=== PATIENT | female | born 1940 | race Caucasian/White ===

== ENCOUNTER 2023-02-28 12:17 | Emergency (ER) | payer MEDICARE, SELFPAY ==
--- NOTE | ~2023-02-28 | XR_ITS ---
EXAMINATION: XR FOREARM, RIGHT CLINICAL INFORMATION: Pain. Fall. COMPARISON: None available. TECHNIQUE: AP and lateral views of the right forearm were obtained. FINDINGS: No acute abnormality. No fracture of the radius or ulna. No soft tissue abnormality. Elbow joint is normal. There is degenerative joint narrowing of the first metacarpal carpal joint as well as the joint space between the navicular and multangular bones. Chondrocalcinosis of the radiocarpal joint. No bone erosion. XR/XR forearm RT 2V IMPRESSION: 1. No acute abnormality of the radius or ulna. 2. Degenerative joint disease of the wrist.
--- NOTE | ~2023-02-28 | XR_ITS ---
EXAMINATION: CHEST 2 VIEWS CLINICAL INFORMATION: Cough and fever. COMPARISON: Chest x-ray 02/22/2017. TECHNIQUE: 2 views of the chest. FINDINGS: Devices: None. Mediastinum: Cardiomediastinal silhouette within normal limits. Pulmonary vascularity is normal. Lungs: Normal expansion. No focal consolidation. Pleura: No pleural effusion or pneumothorax. Bones: Degenerative changes in the shoulders and spine. Other: Unremarkable. XR/XR chest 2V IMPRESSION: No focal pneumonia.
--- NOTE | ~2023-02-28 | CT_ITS ---
EXAMINATION: CT brain without contrast. Right tibia and fibula. CLINICAL INDICATION: Fall. Acute pain. TECHNIQUE: 5 mm thin axial and reformatted 2 mm thin sagittal and coronal images of brain were obtained. DLP [id number]. This CT examination was performed using dose optimization technique as appropriate, variously including the following: Automated exposure control Adjustment of MA and/or KV according to patient size(this includes techniques or standardized protocols for targeted exams where dose is matched to indication/reason for exam; extremities or head. Use of iterative reconstruction techniques. Right tibia and fibula 2 views. FINDINGS: Brain: There is no acute intra-axial, extra-axial bleed, masses or midline shift. There is no acute infarction evolution. There is no edema. There is symmetrical but enlarged lateral ventricles with mild prominence of cortical sulci. There is diffuse periventricular hypodensity in both cerebral hemispheres suggestive of chronic small vessel ischemic changes. Bone windows reveal no calvarial abnormality. Bilateral paranasal sinuses and mastoid air cells are well-aerated. There is no scalp soft tissue abnormality seen. Bilateral orbits and optic globes are symmetrical and normal. RIGHT TIBIA AND FIBULA: There is no visible fracture or bony abnormality. The ankle mortise appears normal. There is mild loss of medial compartment joint space with periarticular spurring. The soft tissues are normal. CT/CT head/brain wo IV con IMPRESSION: 1. No acute intracranial process seen. 2. Age-related cerebral volume loss with chronic small vessel ischemic changes in both cerebral hemispheres. 3. There is no visible fracture or dislocation in right tibia and fibula.
--- NOTE | 2023-02-28 12:18 | ECG_ITS ---
Test Reason : high heart rate Blood Pressure : / mmHG Vent. Rate : 102 BPM Atrial Rate : 102 BPM P-R Int : 146 ms QRS Dur : 088 ms QT Int : 350 ms P-R-T Axes : 079 -64 078 degrees QTc Int : 456 ms Sinus tachycardia with occasional Premature ventricular complexes Possible Left atrial enlargement Left anterior fascicular block Minimal voltage criteria for LVH, may be normal variant ( [place] product ) Nonspecific ST and T wave abnormality Abnormal ECG When compared with ECG of 09-SEP-2019 17:18, Premature ventricular complexes are now Present Referred By: Christine Shane Electronically Signed By:OLVIN SANCHEZ
[2023-02-28 12:35] VITALS: BP 125/64; PULSE 114; RESP 18; TEMP 36.8; O2SAT 96; BMI 20.1
--- NOTE | 2023-02-28 12:36 | ED_ITS ---
HPI - General Adult General Chief complaint: Altered Mental Status Stated complaint: High heart rate/Fever Time Seen by Provider: 02/28/23 20:12 Source: EMS and RN notes reviewed Mode of arrival: wheelchair Limitations: altered mental status History of Present Illness HPI narrative: 82 yo female with history of dementia, HTN, HLD, osteoporosis presents to the ER for evaluation of increased confusion at home. Visiting nurse reported low grade fever 99.9 and tachycardia 110 today. She had a fall yesterday, lost footing when saying goodbye to family and sustained small wound and some bruising to RLE. No head strike but fall was unwitnessed. HR 108 in triage, afebrile patient denies any significant weakness feels normal Related Data Allergies Allergy/AdvReac Type Severity Reaction Status Date / Time Sulfa (Sulfonamide Allergy Unknown BURNING Verified 02/28/23 12:42 Antibiotics) [SULFA (SULFONAMIDE ANTIBIOTICS)] Review of Systems 2 Review of Systems: Yes all other systems are reviewed and are negative [facility] Social History Social History Alcohol intake: current Alcohol intake frequency: holidays/special occasions only Alcohol type: wine Smoked in Last 30 Days: No Use of substances other than those prescribed or required for medical reasons: No Advance Directives: No Advance Directives Information Provided: Yes Physical Exam ED Vital Signs: Vital Signs - 24 hr 02/28/23 12:35 02/28/23 19:29 02/28/23 22:16 Temperature 98.2 F 97.9 F 97.3 F Pulse Rate 114 H 95 95 Respiratory Rate 18 18 18 Blood Pressure 125/64 169/85 H 143/82 H Pulse Oximetry 96 100 100 Oxygen Delivery Method Room Air Room Air Room Air BMI result Body Mass Index 20.1 Appearance: Alert. Oriented X3. No acute distress. Eyes: PERRLA, No Nystagmus ENT: Pharynx normal. Oral Mucosa moist Neck: Normal inspection. Neck supple. CVS: Normal heart rate and rhythm. Pulses normal. Respiratory: No respiratory distress. Equal air entry bilateral, no wheezing/rales/rhonchi Abdomen: Soft and nontender. Bowel sounds are present, no mass palpable, no CVA tenderness Skin: Skin warm and dry. Normal skin color. Normal skin turgor. Extremities: No lower extremity edema. No calf tenderness superficial abrasion right lee Neuro: Oriented X 3. No motor deficit. No sensory deficit.No cerebellar signs , cranial nerves II-XII intact Course Course Course Narrative: RME - 82 yo female with history of dementia, HTN, HLD, osteoporosis presents to the ER for evaluation of increased confusion at home. Visiting nurse reported low grade fever and tachycardia 110 today. She had a fall yesterday, lost footing when saying goodbye to family and sustained small wound and some bruising to RLE. No head strike but fall was unwitnessed. HR 108 in triage, afebrile. Plan: lab workup, EKG, viral swabs, CXR Medical Decision Making Medical Decision Making MDM Narrative: Patient with increased confusion likely early dementia workup negative no source of infection found, urine showed no WBC, imoderate amount of red cells , advisedrink plenty of fluids and follow with PCP Differential Diagnosis Differential Diagnoses: The differential diagnosis associated with the presentation includes Dementia/UTI/infection/encephalopathy/metabolic encephalopathy Admission/Observation Consideration of admission/observation: Escalation of care including admission/observation considered Consult Healthcare Provider Management of the patient was discussed with: Hospitalist Lab Data [facility] Lab Attestation statement: I reviewed the patient's lab results. 02/28/23 16:39 02/28/23 12:40 Labs: Lab Results 02/28/23 02/28/23 02/28/23 Range/Units 12:40 16:39 19:33 WBC 6.4 (4.8-10.8) X10*3/uL RBC 4.23 (4.20-5.50) X10*6/uL Hgb 11.8 L (12.0-16.0) g/dl Hct 36.8 L (37.0-47.0) % MCV 87.0 (80.0-98.0) fL MCH 27.9 (27.0-33.0) pg MCHC 32.1 (31.0-35.0) g/dl RDW 14.7 (11.0-16.0) % Plt Count 284 (160-400) X10*3/uL MPV 9.4 (9.4-12.3) fL Immature Gran % (Auto) 0.5 H (0.0-0.4) % Neut % (Auto) 72.1 (45-73) % Lymph % (Auto) 20.0 (20-40) % [place] % (Auto) 6.6 (2-11) % Eos % (Auto) 0.5 (0-4) % Baso % (Auto) 0.3 (0-2) % Lymph # (Auto) 1.3 (1.2-4.9) X10*3/uL [place] # (Auto) 0.4 (0.1-1.2) X10*3/uL Eos # (Auto) 0.0 (0.0-0.4) X10*3/uL Baso # (Auto) 0.0 (0.0-0.2) X10*3/uL Abs Immat Gran (auto) 0.03 (0.00-0.03) X10*3/uL Absolute Neuts (auto) 4.6 (2.0-8.3) x10*3/uL Absolute Nucleated RBC 0.000 (0.0-0.012) X10*3/uL Nucleated RBC % (auto) 0.0 (0.0-0.2) /100WBC Sodium 136 (135-145) mmol/L Potassium 4.0 (3.3-5.1) mmol/L Chloride 108 (96-108) mmol/L Carbon Dioxide 18 L (22-29) mmol/L Anion Gap 14 (12-20) BUN 17 H (9-16) mg/dL Creatinine 0.81 (0.5-1.4) mg/dL Estim Creat Clear Calc 40.6 Estimated GFR > 60 Random Glucose 99 (60-115) mg/dL Calcium 9.5 (8.4-10.2) mg/dL Magnesium 2.2 (1.6-2.6) mg/dL Total Bilirubin 0.3 (0.0-1.0) mg/dL Direct Bilirubin 0.1 (0.0-0.5) mg/dL AST 18 (5-31) U/L ALT 8 (0-31) U/L Alkaline Phosphatase 90 (39-117) U/L Troponin I High Sens 5.7 (<3.5-17.0) ng/L Total Protein 6.9 (6.5-8.0) g/dL Albumin 3.8 (3.5-5.0) g/dL Urine Color Yellow Urine Appearance Clear Urine pH 5.5 (5.0-9.0) Ur Specific [place] 1.010 (1.005-1.025) Urine Protein Negative (Neg-Trace) mg/dL Urine Glucose (UA) Negative (Negative) mg/dL Urine Ketones Trace (Negative) mg/dL Urine Blood Negative (Negative) Urine Nitrite Negative (Negative) Ur Leukocyte Esterase Moderate (2+) H (Negative) Urine RBC 6-10 H (0-2) /HPF Urine WBC 0-5 (0-5) /HPF Ur Squamous Epith Cells 3-5 (0-2) /HPF Urine Bacteria 1+ (None Seen) Hyaline Casts 0-2 (0-2) /LPF Influenza Type A (PCR) NEGATIVE (Negative) Influenza Type B (PCR) NEGATIVE (Negative) RSV RNA Qual (PCR) NEGATIVE (Negative) SARS-CoV-2 RNA (RT-PCR) NEGATIVE (Negative) Independent Interpretation I performed an independent interpretation of an: EKG Interpretation: Sinus tachycardia heart rate 102 beats per min left anterior fascicular block LVH no acute ST changes no acute ischemia Discharge Plan Discharge Clinical Impression: Confusion, Fall Patient Disposition: Home, Self-Care Instructions: Dementia (ED), Fall Prevention for Older Adults (ED) Additional Instructions: Cause of increased confusion is not very clear possible early dementia No source of infection found Drink plenty of fluids and follow-up with your PCP Care and cautions as Adviced Interventions: ED Discharge Assessment Last Done: 02/28/23 22:19 Discharge Date/Time: 02/28/23 22:20
[2023-02-28 13:08] LABS: Alanine Aminotransferase 8 U/L (0-31); Albumin Level 3.8 g/dL (3.5-5.0); Alkaline Phosphatase 90 U/L (39-117); Anion Gap 14 (12-20); Aspartate Amino Transferase 18 U/L (5-31); Bilirubin Direct 0.1 mg/dL (0.0-0.5); Bilirubin Total 0.3 mg/dL (0.0-1.0); Blood Urea Nitrogen 17 mg/dL (9-16); Calcium 9.5 mg/dL (8.4-10.2); Carbon Dioxide 18 mmol/L (22-29); Chloride 108 mmol/L (96-108); Creatinine Clr Calc Pharmacy 40.6; Estimated Glomerular Filt Rate > 60; Glucose Random 99 mg/dL (60-115); Magnesium 2.2 mg/dL (1.6-2.6); Sodium 136 mmol/L (135-145); Total Protein 6.9 g/dL (6.5-8.0)
[2023-02-28 13:15] LABS: Troponin-I High Sensitivity 5.7 ng/L (<3.5-17.0)
[2023-02-28 16:44] LABS: MANUAL DIFF FLAG NO
[2023-02-28 16:48] LABS: Basophils Percent Auto 0.3 % (0-2); Eosinophils Percent Auto 0.5 % (0-4); Hematocrit 36.8 % (37.0-47.0); Hemoglobin 11.8 g/dl (12.0-16.0); Imm Gran Abs Auto 0.03 X10*3/uL (0.00-0.03); Imm Gran Pct Auto 0.5 % (0.0-0.4); Lymphocytes Absolute Auto 1.3 X10*3/uL (1.2-4.9); Mean Corpuscular HGB Conc 32.1 g/dl (31.0-35.0); Mean Corpuscular Hemoglobin 27.9 pg (27.0-33.0); Mean Platelet Volume 9.4 fL (9.4-12.3); Monocytes Absolute Auto 0.4 X10*3/uL (0.1-1.2); Monocytes Percent Auto 6.6 % (2-11); Neutrophils Absolute Auto 4.6 x10*3/uL (2.0-8.3); Neutrophils Percent Auto 72.1 % (45-73); Platelet Count 284 X10*3/uL (160-400); Red Blood Count 4.23 X10*6/uL (4.20-5.50); Red Cell Distribution Width 14.7 % (11.0-16.0); White Blood Count 6.4 X10*3/uL (4.8-10.8)
[2023-02-28 17:22] LABS: Influenza A PCR NEGATIVE (Negative); Influenza B PCR NEGATIVE (Negative); Resp Syncy Virus RNA Qual PCR NEGATIVE (Negative); SARS COV2 PCR INHOUSE NEGATIVE (Negative)
[2023-02-28 19:29] VITALS: BP 169/85; PULSE 95; RESP 18; TEMP 36.6; O2SAT 100
[2023-02-28 19:52] LABS: Appearance Urine Clear; Color Urine Yellow; Glucose Urine UA Negative (Negative); Leukocyte Esterase Urine Moderate (2+) (Negative); Nitrite Urine Negative (Negative); PH 5.5 (5.0-9.0); UMIC TRIGGER UACC YES; Urine Blood Negative (Negative); Urine Ketones Trace mg/dL (Negative); Urine Protein Negative (Neg-Trace)
[2023-02-28 19:59] LABS: Bacteria Urine 1+ (None Seen); Hyaline Casts Urine 0-2 /LPF (0-2); WBC Urine 0-5 /HPF (0-5)
[2023-02-28 22:16] VITALS: BP 143/82; PULSE 95; RESP 18; TEMP 36.3; O2SAT 100
== END 2023-02-28 22:20 | disposition home or self-care (01) ==
PROVIDERS: Physician Assistant; Emergency Provider Internal Medicine
DX: S09.90XA Unspecified injury of head, initial encounter (principal); F03.90 Unspecified dementia, unspecified severity, without behavioral disturbance, psychotic disturbance, mood disturbance, and anxiety; R50.9 Fever, unspecified; R51.9 Headache, unspecified; R00.0 Tachycardia, unspecified; M54.2 Cervicalgia; R07.89 Other chest pain; M79.604 Pain in right leg; M79.601 Pain in right arm; I10 Essential (primary) hypertension; W01.10XA Fall on same level from slipping, tripping and stumbling with subsequent striking against unspecified object, initial encounter; Y93.9 Activity, unspecified; Y92.9 Unspecified place or not applicable; Y99.9 Unspecified external cause status; Z20.822 Contact with and (suspected) exposure to COVID-19; Z20.828 Contact with and (suspected) exposure to other viral communicable diseases; Z79.899 Other long term (current) drug therapy
CPT/HCPCS: 0241U; 70450; 71046; 73090; 73590; 80048; 80076; 81001; 83735; 84484; 85025; 93005; 99283; 99285

== ENCOUNTER 2023-03-09 09:29 | Outpatient (REF) | payer MEDICARE, SELFPAY ==
[2023-03-09 11:00] LABS: Anion Gap 12 (12-20); Blood Urea Nitrogen 13 mg/dL (9-16); Calcium 10.1 mg/dL (8.4-10.2); Carbon Dioxide 26 mmol/L (22-29); Chloride 106 mmol/L (96-108); Estimated Glomerular Filt Rate > 60; Glucose Random 94 mg/dL (60-115); Potassium 4.1 mmol/L (3.3-5.1); Sodium 140 mmol/L (135-145)
[2023-03-09 11:04] LABS: T4 Thyroxine 8.2 ug/dL (4.5-12.0); Thyroid Stimulating Hormone 0.99 uIU/mL (0.32-4.0)
[2023-03-09 11:19] LABS: Folate 7.3 ng/mL (> or = 4.0); Vitamin B12 356 pg/mL (200-900)
== END 2023-03-09 09:30 | disposition home or self-care (01) ==
LOC: HO.LAB 09:29
PROVIDERS: Visit Provider Psychiatry & Neurology Neurology
DX: G31.84 Mild cognitive impairment of uncertain or unknown etiology (principal)
CPT/HCPCS: 36415; 80048; 82607; 82746; 84436; 84443

== ENCOUNTER 2023-04-11 17:56 | Outpatient (REF) | payer MEDICARE, SELFPAY ==
--- NOTE | ~2023-04-11 | MR_ITS ---
EXAMINATION: MR BRAIN WITHOUT CONTRAST CLINICAL INFORMATION: Mild cognitive impairment COMPARISON: CT head 02/28/2023 TECHNIQUE: MRI of the brain was obtained using routine sequences without contrast. FINDINGS: Motion degraded examination. No acute infarct. No acute intracranial hemorrhage or extra-axial fluid collection. Moderate global cerebral volume loss without lobar predilection. Patchy T2 FLAIR hyperintense foci in the subcortical and periventricular white matter and bilateral deep prieto nuclei, nonspecific but presumably advanced chronic microangiopathy. 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 No mass lesion, mass effect, or herniation pattern. Preserved intracranial arterial and dural venous sinus flow voids. 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 The intradural right vertebral artery flattens the right ventral medulla. Normal appearance of the midline structures. The orbits are grossly unremarkable. Air-fluid level versus dependent retention cyst in the right sphenoid sinus. Trace bilateral mastoid effusions. Asymmetric moderate degenerative changes of the right TMJ. Incompletely imaged cervical spondylosis, including disc osteophyte complex at C3-C4 and bilateral facet arthropathy with ligamentum flavum thickening contributing to apparent moderate spinal canal stenosis with mass effect along the ventral cord. MR/MR head/brain wo con IMPRESSION: 1. No acute intracranial process. 2. Moderate global cerebral volume loss without lobar predilection. White matter disease is nonspecific but presumably respective of advanced chronic microangiopathy. 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 3. 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 4. Incompletely imaged cervical spondylosis with apparent moderate degree C4 spinal canal stenosis with mass effect along the ventral cord, which could be further assessed with cervical spine MRI if there is referrable myelopathy.
== END 2023-04-11 17:57 | disposition home or self-care (01) ==
LOC: HO.MRI 17:56
PROVIDERS: Visit Provider Psychiatry & Neurology Neurology
DX: G31.84 Mild cognitive impairment of uncertain or unknown etiology (principal)
CPT/HCPCS: 70551